=== PATIENT | female | born 1950 | race Caucasian/White ===

== ENCOUNTER → 2021-10-05 | Outpatient (CLI) | payer MEDICARE | LOC: MC.RAD 12:59 | DX: Z12.31 Encounter for screening mammogram for malignant neoplasm of breast (principal); N63.20 Unspecified lump in the left breast, unspecified quadrant ==

== ENCOUNTER 2023-10-22 09:15 | Outpatient (RCR) | payer MEDICARE | END 2023-10-23 | disposition home or self-care (01) | LOC: PT.GENESIS | DX: M75.81 Other shoulder lesions, right shoulder (principal) ==

== ENCOUNTER 2023-11-19 11:00 | Outpatient (RCR) | payer MEDICARE | END 2023-11-23 | disposition home or self-care (01) | LOC: PT.GENESIS | DX: M75.81 Other shoulder lesions, right shoulder (principal); I25.10 Atherosclerotic heart disease of native coronary artery without angina pectoris; E78.5 Hyperlipidemia, unspecified ==